=== PATIENT | male | born 1970 | race Hispanic/Latino ===

== ENCOUNTER 2025-04-25 00:14 | Emergency (ER) | payer SELFPAY ==
[~2025-04-25] VITALS: Ht 180.3 cm; Wt 119.7 kg
[2025-04-25 00:51] VITALS: TEMP 98.6
[2025-04-25] MEDS: ASPIRIN 325MG TAB PO ONE (00:54)
[2025-04-25] MEDS: NITROGLYCERIN 1GM OINT 1 INCH/1GM TD ONE (00:54)
[2025-04-25 00:56] LABS: ADD UA MICROSCOPIC NO; APPEARANCE,URINE CLEAR (CLEAR); GLUCOSE, URINE (UA) NEGATIVE (NEGATIVE); LEUKOCYTE ESTERASE ,URINE NEGATIVE Leu/uL (NEGATIVE); NITRATE,URINE NEGATIVE (NEGATIVE); OCCULT BLOOD,URINE NEGATIVE (NEGATIVE)
[2025-04-25 00:57] LABS: IMMATURE GRANULOCYTE ABSOLUTE 0.04 K/uL (0-1); NUCLEATED RED BLOOD CELLS 0.0 % (0.0-0.19); PLATELET COUNT (AUTO) 299 K/uL (130-400); RED BLOOD CELL COUNT(AUTO) 5.15 MIL/uL (4.50-6.20); RED CELL DISTRIBUTION WIDTH 13.0 % (11.0-15.5); WHITE BLOOD COUNT (AUTO) 10.4 K/uL (4.8-10.8)
[2025-04-25 01:03] LABS: AMPHET/METH SCREEN,URINE NEGATIVE (NEGATIVE); BARBITURATE SCREEN, URINE NEGATIVE (NEGATIVE); CANNABINOID SCREEN,URINE NEGATIVE (NEGATIVE); COCAINE SCREEN,URINE POSITIVE (NEGATIVE)
[2025-04-25 01:05] LABS: CREATININE 1.2 mg/dL (0.5-1.3); GLOMERULAR FILTR. RATE CALC 71.0 mL/min (>90); GLUCOSE,RANDOM 94.0 mg/dL (70-105); SODIUM SERUM 138.0 mmol/L (136-145); UREA NITROGEN, BLOOD 18.0 mg/dL (7-18)
[2025-04-25 01:10] LABS: CREATINE KINASE, TOTAL 114.0 U/L (21-232)
--- NOTE | 2025-04-25 01:55 | ERN ---
ED Note History of Present Illness Stated Complaint: C/O HIGH B/P; SENT HERE BY [facility] Chief Complaint: Hypertension Time Seen by MD: 00:24 Time Seen by Midlevel: 00:24 Dictation: The patient is a 55-year-old male with a history of hypertension who presents to the emergency department for evaluation of elevated blood pressure and chest pain. Patient was sent here by the [facility] for further evaluation. Patient reports that yesterday he had chest pain that lasted about 40 minutes. Reports that he has jaw pain and pain to his left arm. Patient denies any drug use. Allergies: Coded Allergies: No Known Allergies (Unverified Allergy, Unknown, 04/25/25) Past Medical History Past Medical History: Hypertension Surgical History: None RN Note Reviewed/Agreed w/PFSH: Yes Review of System Dictation Constitutional: Negative for fever,chills, and weight loss Eyes: Negative for injury, pain,redness, and discharge ENT: Negative for injury,pain or swelling Cardiovascular: Negative for palpitations, and edema positive for chest pain Respiratory: Negative for shortness of breath, cough, and wheezing, Abdomen/GI: Negative for abdominal pain, nausea, vomiting, diarrhea, and constipation Back: Negative for injury and pain : Negative for injury, bleeding and discharge MS/Extremity: Negative for injury and deformity Skin: Negative for rash, and discoloration Neuro: Negative for headache, weakness, numbness, tingling, and seizure Psych: Negative for suicide ideation, homicidal ideation, and hallucinations Initial Vital Sign VS Vital Signs Date Time Temp Pulse Resp B/P (MAP) Pulse Ox O2 Delivery O2 Flow Rate FiO2 04/25/25 00:19 97.2 58 20 164/105 98 Room Air 04/25/25 00:51 0 21 Physical Exam Dictation Vital Signs reviewed General Appearance: Alert, oriented x 3, no acute distress, well developed, nourished. Head and Face: non-traumatic. Eyes: PERRL, pink conjunctivas, eyelid no trauma, anterior chamber with arcus senilis. Ears: Pinnas intact and no signs of trauma or erythema ear canals clear and no discharge TM no erythema Nose: No discharge, no bleeding. Oropharynx: Mouth normal, tongue pink. pharynx clear,no erythema, tonsils no exudates, no abscesses noted, mucous membrane moist Neck: Supple, non-tender, no thyromegaly, no masses, no JVD, no bruits Breast:Deferred Chest:No tenderness, no crepitus, no paradoxical movement, no retractions Lungs:Clear, well-ventilated, symmetric, no rales, no wheezing, no rhonchi, no stridor, good breath sounds bilaterally Heart: Regular rate, regular rhythm, no murmur, no gallops Vascular: no peripheral edema, Abdomen: Soft, positive bowel sounds, nondistended, no guarding, nontender, no rebound, no masses no hepatomegaly, no splenomegaly, no Jackson's sign, no hernias. Rectal: Deferred Genital: Deferred Neurological: Normal speech, motor function intact, sensory function intact , upper extremities equal in strength, lower extremities equal in strength, no facial droop Musculoskeletal: Neck nontender, full range of motion, back nontender, full range of motion, Extremities: nontender, full range of motion Skin: Color pink, dry, no turgor, no rash, no lacerations, no abrasions, no contusions. Lymphatic: Deferred Results (Laboratory/Radiology) Laboratory/Radiology Laboratory Tests Test 04/25/25 00:49 04/25/25 01:47 White Blood Count 10.4 K/uL (4.8-10.8) Red Blood Count 5.15 MIL/uL (4.50-6.20) Hemoglobin 15.3 g/dL (14.0-18.0) Hematocrit 43.2 % (42-54) Mean Corpuscular Volume 83.9 fL (79-99) Mean Corpuscular Hemoglobin 29.7 pg (27.0-33.0) Mean Corpuscular Hemoglobin Concent 35.4 g/dL (32.0-36.0) Red Cell Distribution Width 13.0 % (11.0-15.5) Platelet Count 299 K/uL (130-400) Mean Platelet Volume 8.8 fL (7.5-10.5) Immature Granulocyte % (Auto) 0.4 % (0-1) Neutrophils (%) (Auto) 46.1 % (40.0-77.0) Lymphocytes (%) (Auto) 39.8 % (21.0-51.0) Monocytes (%) (Auto) 9.4 % (3.0-13.0) Eosinophils (%) (Auto) 3.5 % (0.0-8.0) Basophils (%) (Auto) 0.8 % (0.0-5.0) Neutrophils # (Auto) 4.8 K/uL (1.8-7.7) Lymphocytes # (Auto) 4.2 K/uL (1.0-4.8) Monocytes # (Auto) 1.0 K/uL (0.1-1.0) Eosinophils # (Auto) 0.37 K/uL (0.00-0.70) Basophils # (Auto) 0.08 K/uL (0.00-0.20) Absolute Immature Granulocyte (auto 0.04 K/uL (0-1) Nucleated Red Blood Cells 0.0 % (0.0-0.19) Urine Color LIGHT-YELLOW (YELLOW) Urine Appearance CLEAR (CLEAR) Urine pH 5.5 (5.0-8.0) Urine Specific [place] 1.018 (1.001-1.031) Urine Protein NEGATIVE mg/dL (NEGATIVE) Urine Glucose (UA) NEGATIVE mg/dL (NEGATIVE) Urine Ketones NEGATIVE mg/dL (NEGATIVE) Urine Occult Blood NEGATIVE (NEGATIVE) Urine Nitrate NEGATIVE (NEGATIVE) Urine Bilirubin NEGATIVE mg/dL (NEGATIVE) Urine Urobilinogen 0.2 mg/dL (0.2-1.0) Urine Leukocyte Esterase NEGATIVE [place]/uL Sodium Level 138 mmol/L (136-145) Potassium Level 4.2 mmol/L (3.5-5.1) Chloride Level 103 mmol/L (101-111) Carbon Dioxide Level 29 mmol/L (21-32) Blood Urea Nitrogen 18 mg/dL (7-18) Creatinine 1.2 mg/dL (0.5-1.3) Glomerular Filtration Rate Calc 71 mL/min (>90) Random Glucose 94 mg/dL (70-105) Total Calcium 8.8 mg/dL (8.5-10.1) Magnesium Level 2.30 mg/dL (1.80-2.40) Total Creatine Kinase 114 U/L (21-232) Troponin I High Sensitivity 42 ng/L (4-75) 42 ng/L (4-75) Lipase 55 U/L (16-77) Urine Opiates Screen NEGATIVE (NEGATIVE) Urine Barbiturates Screen NEGATIVE (NEGATIVE) Urine Phencyclidine Screen NEGATIVE (NEGATIVE) Urine Amphetamines Screen NEGATIVE (NEGATIVE) Urine Benzodiazepines Screen NEGATIVE (NEGATIVE) Urine Cocaine Screen POSITIVE (NEGATIVE) H Urine Marijuana (THC) Screen NEGATIVE (NEGATIVE) REASON: cp ORDERING PHYSICIAN: MILDRED ORTIZ PROCEDURE: CXR1VW - CHEST 1VW EXAM: CR Chest, 1 view CLINICAL HISTORY: Chest pain. COMPARISON: None provided. FINDINGS: The lungs show no infiltrates or other acute findings. No pleural effusion or pneumothorax. The cardiomediastinal silhouette is within normal limits. Mildly tortuous descending thoracic aorta. Questionable small hiatal hernia. No acute osseous abnormality. IMPRESSION: No acute cardiopulmonary process is evident. Mildly tortuous descending thoracic aorta. Questionable small hiatal hernia. /[place] Labs Reviewed?: Yes EKG: (+) rhythm (Sinus rhythm) EKG Comment: Date:04/25/2025 Time:51 Ventricular rate:62 VA interval:151 QRS duration:86 QT/QTc:390/390 EKG interpretation: Sinus rhythm, borderline ST-elevation anterior leads Reviewed by ED Attending, no STEMI ED Course ED Course Orders Procedure Category Date Status Time Cbc With Differential LAB 04/25/25 Complete 00:31 Chest 1vw RAD 04/25/25 Resulted 00:31 12 Lead Ekg Tracing- EKG 04/25/25 Logged Technical 00:31 Nitroglycerin 1gm PHA 04/25/25 Complete Oint (Nitroglycerin 1g 01:00 Magnesium LAB 04/25/25 Complete 00:31 Creatine Kinase, Total LAB 04/25/25 Complete 00:31 Troponin I High LAB 04/25/25 Complete Sensitivity 00:31 Aspirin 325mg Tab PHA 04/25/25 Complete (Aspirin 325mg Tab) 01:00 Urinalysis Profile LAB 04/25/25 Complete 00:31 Basic Metabolic Panel LAB 04/25/25 Complete 00:31 Lipase LAB 04/25/25 Complete 00:31 Drug Screen Urine LAB 04/25/25 Complete 00:31 Troponin I High LAB 04/25/25 Complete Sensitivity 01:31 Current Medications Medications (Trade) Dose Ordered Sig/Rashel Route PRN Reason Start Time Stop Time Status Last Admin Dose Admin Aspirin (Aspirin 325mg Tab) 325 mg ONCE ONCE PO 04/25/25 01:00 04/25/25 01:01 DC 04/25/25 00:54 Nitroglycerin (Nitroglycerin 1gm Oint) 1 inch ONCE ONCE TD 04/25/25 01:00 04/25/25 01:01 DC 04/25/25 00:54 Vital Signs Date Time Temp Pulse Resp B/P (MAP) Pulse Ox O2 Delivery O2 Flow Rate FiO2 04/25/25 01:34 62 18 138/95 98 Room Air* 0 21 04/25/25 00:51 98.6 62 18 148/105 98 Room Air* 0 21 04/25/25 00:19 97.2 58 20 164/105 98 Room Air HEART Score Response (Comments) Value History: Moderate suspicion (+1) 1 EKG: Repolarization changes 1 Age: 45-65yrs (+1) 1 Risk Factors: 1-2 risk factors (+1) 1 Initial Troponin: Normal limit (0) 0 Total 4 Medical Decision Making MDM The patient is a 55-year-old male with a history of hypertension who presents to the emergency department for evaluation of elevated blood pressure and chest pain. Patient was sent here by the [facility] for further evaluation. Patient reports that yesterday he had chest pain that lasted about 40 minutes. Reports that he has jaw pain and pain to his left arm. Patient denies any drug use. CBC showed no leukocytosis, no anemia, chemistry showed no electrolyte imbalance, negative lipase, troponin of 42, second troponin was unchanged urinalysis unremarkable, urine drug screen positive for cocaine. Chest x-ray showed no acute cardiopulmonary process. Mildly tortuous descending thoracic aorta. Blood pressure has improved. Patient reports no longer having any chest pain at this time would like to be discharged. Patient instructed on avoidance of cocaine use. Reports he did not lose it and he only tasted it a couple of weeks ago. On physical exam patient is in no acute distress, neurologically intact, nontoxic appearance, stable vital signs. Differential diagnosis: ACS, hypertensive urgency, hypertensive emergency, drug abuse Need for hospitalization: Patient does not meet criteria for hospitalization. There are no social concerns with this patient. DX & DISP Disposition: Discharge Departure Impression: Primary Impression: Chest pain Condition: Stable Additional Instructions: Please follow up with the primary doctor in 1-2 days. If you develop severe pain or symptoms worsen please return to ER. FOLLOW-UP WITH PRIMARY CARE PROVIDER IN 1 TO 2 DAYS. TAKE MEDICATIONS DIRECTED HERE IN THE EMERGENCY ROOM. OKAY TO CONTINUE HOME MEDICATIONS UNLESS OTHERWISE DISCUSSED DURING YOUR VISIT IN THE EMERGENCY ROOM TODAY. RETURN TO YOUR NEAREST EMERGENCY ROOM IF SYMPTOMS WORSEN OR IF THERE IS NO IMPROVEMENT. CALL 911 IF YOU NEED IMMEDIATE ASSISTANCE. TAKE TYLENOL [id number] NEEDED AND IF NO CONTRAINDICATIONS ARE PRESENT. INCREASE ORAL HYDRATION. A WOUND CULTURE OR URINE CULTURE WAS ORDERED HERE IN THE EMERGENCY ROOM DEPARTMENT PLEASE FOLLOW-UP WITH PRIMARY CARE PROVIDER AND ADVISE THEM TO GET REPEAT PORTS FROM OUR FACILITY. IF YOU HAD ANY KEN WRAP/SPLINTS THAT WERE APPLIED HERE, PLEASE DO NOT REMOVE THEM UNTIL YOU SEE YOUR PRIMARY CARE OR SPECIALTY. Referrals: SELF,REFERRAL (PCP) Time of Disposition: 02:55 I have reviewed the case, and I agree with, Diagnosis and Plan MILDRED ORTIZ [facility] Apr 25, 2025 01:55
--- NOTE | 2025-04-25 02:40 | HMCIMG ---
EXAM: CR Chest, 1 view CLINICAL HISTORY: Chest pain. COMPARISON: None provided. FINDINGS: The lungs show no infiltrates or other acute findings. No pleural effusion or pneumothorax. The cardiomediastinal silhouette is within normal limits. Mildly tortuous descending thoracic aorta. Questionable small hiatal hernia. No acute osseous abnormality. IMPRESSION: No acute cardiopulmonary process is evident. Mildly tortuous descending thoracic aorta. Questionable small hiatal hernia. /[place]
[2025-04-25 02:59] VITALS: BP 128/92; PULSE 68; RESP 18; O2SAT 98
--- NOTE | 2025-04-25 06:30 | EKG ---
[facility] Test Date: 2025-04-25 Test Time: 00:52:44 Pat Name: ELISABETH RICHMOND Department: ED Room: Gender: M Tube Sorter: [id number] : [id number] Requested By: MILDRED ORTIZ Order Number: [id number] Reading MD: Ghazala Bhatia Measurements Intervals [place] Rate: 62 P: 28 IN: 151 QRS: 25 QRSD: 86 T: 25 QT: 383 QTc: 390 Interpretive Statements Sinus rhythm Borderline ST elevation, anterior leads No previous ECG available for comparison Electronically Signed On 04-27-2025 08:34:59 CDT by Ghazala Bhatia Please click the below link to view image of tracing.
== END 2025-04-25 03:08 | disposition home or self-care (01) ==
LOC: EDH 00:14
DX: R07.89 Other chest pain (principal)
CPT/HCPCS: 36415; 71045; 80048; 80305; 81003; 82550; 83690; 83735; 84484; 85025; 93005; 99285